=== PATIENT | female | born 1955 | race African-American/Black ===

== ENCOUNTER 2023-03-04 23:37 | Emergency (ER) | payer OTHER ==
[~2023-03-04] VITALS: Ht 167.6 cm; Wt 77.0 kg
[2023-03-05 00:02] VITALS: BP 147/85; PULSE 82; RESP 16; TEMP 98.3; O2SAT 98
[2023-03-05] MEDS ORDERED: ACETAMINOPHEN 325MG TABLET PO ONE (01:00)
[2023-03-05] MEDS ORDERED: ACET-2708 MT (03:13)
== END 2023-03-05 03:54 | disposition home or self-care (01) ==
LOC: ER 23:37
DX: M19.91 Primary osteoarthritis, unspecified site (principal)
CPT/HCPCS: 73030; 93971; 99284